=== PATIENT | female | born 1965 | race Two or more races ===

== ENCOUNTER 2020-09-08 08:45 | Outpatient (REF) | payer OTHER, SELFPAY ==
[2020-09-08 09:44] LABS: MANUAL DIFF FLAG NO
[2020-09-08 10:04] LABS: Basophils Percent Auto 0.4 % (0-2); Eosinophils Absolute Auto 0.4 X10*3/uL (0.0-0.4); Eosinophils Percent Auto 4.5 % (0-4); Hematocrit 41.4 % (37-47); Hemoglobin 13.3 g/dl (12.0-16.0); Imm Gran Abs Auto 0.01 X10*3/uL (0.00-0.03); Imm Gran Pct Auto 0.1 % (0.0-0.4); Lymphocytes Absolute Auto 2.7 X10*3/uL (1.2-4.9); Lymphocytes Percent Auto 35.2 % (20-40); Mean Corpuscular HGB Conc 32.1 g/dl (31.0-35.0); Mean Corpuscular Hemoglobin 29.5 pg (27.0-33.0); Mean Corpuscular Volume 91.8 fL (80-98); Mean Platelet Volume 9.9 fL (9.4-12.3); Monocytes Absolute Auto 0.5 X10*3/uL (0.1-1.2); Neutrophils Absolute Auto 4.1 X10*3/uL (2.0-8.3); Neutrophils Percent Auto 52.8 % (45-73); Platelet Count 374 X10*3/uL (160-400); Red Blood Count 4.51 X10*6/uL (4.20-5.50); Red Cell Distribution Width 12.6 % (11.0-16.0); White Blood Count 7.7 X10*3/uL (4.8-10.8)
[2020-09-08 11:13] LABS: Alanine Aminotransferase 17 U/L (0-31); Albumin Level 4.4 g/dL (3.5-5.0); Alkaline Phosphatase 130 U/L (39-117); Anion Gap 10 (12-20); Aspartate Amino Transferase 17 U/L (5-31); Bilirubin Total 0.7 mg/dL (0.0-1.0); Blood Urea Nitrogen 15 mg/dL (9-16); Calcium 9.1 mg/dL (8.4-10.2); Carbon Dioxide 30 mmol/L (22-29); Chloride 107 mmol/L (96-108); Estimated Glomerular Filt Rate > 60; Glucose Fasting 89 mg/dL (60-99); Potassium 4.6 mmol/L (3.3-5.1); Sodium 142 mmol/L (135-145); Total Protein 7.1 g/dL (6.5-8.0)
== END 2020-09-08 08:46 | disposition home or self-care (01) ==
LOC: HO.LAB 08:45
PROVIDERS: PCP Internal Medicine; Visit Provider Internal Medicine
DX: G47.00 Insomnia, unspecified (principal)
CPT/HCPCS: 36415; 80053; 85025

== ENCOUNTER 2020-12-08 08:13 | Outpatient (REF) | payer OTHER, SELFPAY ==
[2020-12-08 09:49] LABS: Alanine Aminotransferase 32 U/L (0-31); Albumin Level 4.2 g/dL (3.5-5.0); Alkaline Phosphatase 134 U/L (39-117); Anion Gap 11 (12-20); Aspartate Amino Transferase 22 U/L (5-31); Bilirubin Total 0.3 mg/dL (0.0-1.0); Blood Urea Nitrogen 15 mg/dL (9-16); Calcium 9.1 mg/dL (8.4-10.2); Carbon Dioxide 28 mmol/L (22-29); Chloride 108 mmol/L (96-108); Cholesterol 212 mg/dL; Estimated Glomerular Filt Rate > 60; Glucose Fasting 86 mg/dL (60-99); HDL Cholesterol 46 mg/dL; LDL Cholesterol Calculated 137 mg/dl; Potassium 4.5 mmol/L (3.3-5.1); Sodium 142 mmol/L (135-145); Total Protein 6.7 g/dL (6.5-8.0); Triglycerides 146 mg/dL
== END 2020-12-08 08:14 | disposition home or self-care (01) ==
LOC: HO.LAB 08:13
PROVIDERS: PCP Internal Medicine; Visit Provider Internal Medicine
DX: E78.5 Hyperlipidemia, unspecified (principal)
CPT/HCPCS: 36415; 80053; 80061

== ENCOUNTER 2021-06-10 07:37 | Outpatient (REF) | payer OTHER, SELFPAY ==
[2021-06-10 08:27] LABS: Alanine Aminotransferase 16 U/L (0-31); Alkaline Phosphatase 118 U/L (39-117); Anion Gap 11 (12-20); Aspartate Amino Transferase 18 U/L (5-31); Bilirubin Total 0.6 mg/dL (0.0-1.0); Blood Urea Nitrogen 14 mg/dL (9-16); Calcium 9.2 mg/dL (8.4-10.2); Carbon Dioxide 26 mmol/L (22-29); Chloride 108 mmol/L (96-108); Cholesterol 190 mg/dL; Estimated Glomerular Filt Rate > 60; Glucose Fasting 95 mg/dL (60-99); HDL Cholesterol 40 mg/dL; LDL Cholesterol Calculated 130 mg/dl; Potassium 4.2 mmol/L (3.3-5.1); Sodium 141 mmol/L (135-145); Total Protein 6.6 g/dL (6.5-8.0); Triglycerides 100 mg/dL
== END 2021-06-10 07:38 | disposition home or self-care (01) ==
LOC: HO.LAB 07:37
PROVIDERS: PCP Internal Medicine; Visit Provider Internal Medicine
DX: E78.5 Hyperlipidemia, unspecified (principal)
CPT/HCPCS: 36415; 80053; 80061

== ENCOUNTER → 2021-11-24 08:12 | Outpatient (BNVA) | payer OTHER, SELFPAY | PROVIDERS: PCP Internal Medicine; Visit Provider Physician Assistant | DX: S66.812A Strain of other specified muscles, fascia and tendons at wrist and hand level, left hand, initial encounter (principal); S64.491A Injury of digital nerve of left index finger, initial encounter | CPT/HCPCS: 99202 ==

== ENCOUNTER 2021-11-27 06:02 | Day surgery (SDC) | payer OTHER, SELFPAY ==
[2021-11-27 06:18] VITALS: BMI 26.0
[2021-11-27 06:37] VITALS: BP 138/62; PULSE 64; RESP 16; TEMP 36; O2SAT 97
[2021-11-27] MEDS: Lactated Ringers 1,000 ML 50 ML IVCONT (07:01)
--- NOTE | 2021-11-27 07:45 | MHC.SHP ---
Pre-Procedural Eval Section A Date of Service: 11/27/21 The patient is an INPATIENT: No Changes since office visit: No Cold of Flu in the past 2 weeks, No New Medical Problems, No Changes in Medication and No Patient answered all questions The History & Physical has been completed within 30 days and I have reviewed it.: Yes Section B Chief Complaint: nerve and tendon laceration Allergies: Allergies Allergy/AdvReac Type Severity Reaction Status Date / Time No Known Allergies Allergy Verified 06/19/21 14:25 Plan I have reviewed the history and physical and performed a pertinent physical examination on my patient. No changes have occurred unless specified.
--- NOTE | 2021-11-27 07:45 | W.PM.OPN ---
Operative Note Operative Note Date of Service: 11/27/21 Narrative: Operative Note Narrative: Preop diagnosis: 1. Left index finger flexor digitorum superficialis laceration, zone 2 2. Left index finger flexor digitorum profundus laceration, zone 2 3. Left index finger radial digital nerve laceration Postop diagnosis: Same Procedure: 1. Left index finger flexor digitorum superficialis repair, zone 2 2. Left index finger flexor digitorum profundus repair, zone 2 3. Left index finger radial digital nerve neurolysis and microscopic repair Surgeon: Janet Reilly MD Anesthesia: general anesthesia plus regional block Findings: laceration of FDS and FDP tendons of the left index finger just proximal to the A4 arron. The distal aspect of the FDP tendon was found in the proximal aspect of the A4 arron. The proximal aspect of these tendons were found just proximal to the A2 arron. The radial digital nerve and artery were both lacerated at the PIP flexion crease. Implants: None Tourniquet time: One hundred minutes EBL: 5.0 ml Specimen: none Drains: None Complications: None Disposition: Brought to the recovery room in stable condition Plan: Follow-up with our OT hand therapists for a custom dorsal blocking splint and to begin the flexor tendon protocol within 1 week. Follow-up in 10-14 days for wound check and suture removal Indications: The patient is 56 years old with a left index finger FDS and FDP tendon repair as well as numbness in the radial digital nerve distribution all in zone 2 . The risks and benefits of operative treatment, including but not limited to risk of damage to blood vessels, nerves, tendons, infection, recurrence, persistent pain or numbness, incomplete resolution of preoperative symptoms, or need for further surgery were discussed with the patient and they wished to proceed with surgery. Procedure: Once consent was obtained patient was brought back to the operating suite and placed in the operating table in a supine position. A regional block was performed by the anesthesia team. Perioperative antibiotics and anesthesia was administered by the anesthesia team. A tourniquet was applied to the proximal aspect of the left upper extremity and the limb was prepped and draped in a standard surgical fashion. The limb was elevated exsanguinated with Esmarch bandage and the tourniquet inflated to 250 mm of mercury for a total tourniquet time of Under minutes. A Madeline is a type incision was made over the volar aspect of the patient's left index finger, incorporating the laceration. The incision was made through the skin to the subcutaneous tissues using a 15. Blade. Careful dissection was made down to the level of the flexor tendon sheath with care being taken to protect the neurovascular structures. The laceration through the flexor tendon sheath was found just proximal to the A4 arron lacerating both the FDS and FDP tendons. The radial digital nerve and artery were also noted to be lacerated. The wound was washed out and debrided of any nonviable tissue. Our attention was 1st turned to the Flexor tendons. I was able to grasp the FDS and FDP tendons within the flexor tendon sheath and bring them out to the A3 arron area. There were then held in place with a 25 gauge needle. I then repaired the ulnar and radial slips of the flexor digitorum superficialis tendon. Each 1 was repaired using some 4-0 FiberWire. I then turned my attention to the FDP tendon. This was repaired using a 4 core suture technique and 3-0 Ethibond suture. It was repaired proximal to the A4 arron. An epitendinous repair was then performed using some 6 0 Prolene. I performed a neurolysis mobilizing the radial digital nerve both proximal and distal to the laceration. They were lacerated essentially at the PIP flexion crease. A small piece of blue Esmarch was placed beneath the 2 nerve ends. I removed approximately 1 mm from the proximal end of the radial digital nerve to freshen up the end in preparation for repair. We then brought in the surgical microscope. The radial digital nerve was then repaired microscopically using some 8 0 nylon suture. I was satisfied with our repair of the radial digital nerve. At this point the tourniquet was deflated and hemostasis obtained with a brief period of local pressure . The wound was copiously irrigated with normal saline. The the skin edges were reapproximated with 5-0 Prolene suture. The wound was infiltrated with 0.25% plain Marcaine for postop pain control and a sterile dressing was applied. A dorsal blocking splint was then applied holding the MCP and PIP joints in a flexed position and the wrist in neutral.. The patient appears to have tolerated the procedure well and with no complications. All digits were well vascularized conclusion of the case.
[2021-11-27 10:50] VITALS: BP 113/64; PULSE 80; RESP 16; TEMP 37.2; O2SAT 98
[2021-11-27 10:55] VITALS: BP 105/66; PULSE 79; RESP 16; O2SAT 98
[2021-11-27 11:00] VITALS: BP 127/69; PULSE 92; RESP 16; O2SAT 98
[2021-11-27 11:05] VITALS: BP 132/64; PULSE 87; RESP 16; O2SAT 98
[2021-11-27 11:20] VITALS: BP 127/71; PULSE 79; RESP 16; TEMP 36.8; O2SAT 98
== END 2021-11-27 12:40 | disposition home or self-care (01) ==
PROVIDERS: PCP Internal Medicine; Visit Provider Orthopaedic Surgery
PROC: (CPT 26356; principal; 2021-11-27 07:30)
DX: S66.812A Strain of other specified muscles, fascia and tendons at wrist and hand level, left hand, initial encounter (principal); S64.491A Injury of digital nerve of left index finger, initial encounter; R20.2 Paresthesia of skin; W26.0XXA Contact with knife, initial encounter; Y93.G1 Activity, food preparation and clean up; Y92.9 Unspecified place or not applicable; Y99.8 Other external cause status; I87.2 Venous insufficiency (chronic) (peripheral); E78.5 Hyperlipidemia, unspecified; F17.210 Nicotine dependence, cigarettes, uncomplicated
CPT/HCPCS: 26356 ×2; 64702; J0690; J2250; J2795; J3010

== ENCOUNTER 2021-12-29 10:23 | Outpatient (REF) | payer OTHER, SELFPAY ==
--- NOTE | ~2021-12-29 | MM_ITS ---
EXAMINATION: MM SCREENING DIGITAL BREAST TOMOSYNTHESIS, BILATERAL CLINICAL INFORMATION: Screening. Asymptomatic. The lifetime risk of breast cancer based on the Tyrer-Cuzick Model is 8%. COMPARISON: Mammography: 04/13/2020, 07/18/2018, 07/10/2010; bilateral breast ultrasound 10/11/2018. TECHNIQUE: Digital breast tomosynthesis is performed in both the craniocaudal and mediolateral oblique views along with computer-aided detection (CAD). Synthesized 2D images are generated from the tomosynthesis. FINDINGS: The breasts are heterogeneously dense, which may obscure small masses (ACR BI-RADS breast composition Category c). Parenchymal pattern is similar to prior study. There is no interval mass or architectural abnormality or abnormal calcifications. Right breast again has circumscribed mass central 12:00 position with benign rim calcification. There are smaller satellite nodularity with rim calcification central 3:00 and mid 9:00 position stable to decreased. The axilla and skin contours are unremarkable. No significant changes. MM/MM tomosynthesis screening BI IMPRESSION: No mammographic evidence of malignancy. ASSESSMENT: BI-RADS 2: Benign RECOMMENDATION: Routine annual mammography screening. This patient's information was entered into a reminder system with a target due date for their next mammogram.
== END 2021-12-29 10:24 | disposition home or self-care (01) ==
LOC: HO.MAMMO 10:23
PROVIDERS: PCP Internal Medicine; Visit Provider Internal Medicine
DX: Z12.31 Encounter for screening mammogram for malignant neoplasm of breast (principal)
CPT/HCPCS: 77063; 77067

== ENCOUNTER 2022-03-21 14:30 | Outpatient (RCR) | payer OTHER, SELFPAY ==
--- NOTE | 2022-04-16 15:59 | MHC.OT.DC ---
[address] [phone] F: [phone] Occupational Therapy Discharge Note Provider: Janet Reilly Diagnosis: Left index flexor tendon and digital nerve laceration Date of Surgery: 11/27/21 Date of Evaluation: 12/01/21 Date of Discharge: Treatments to Date: 21 Cancellations to Date: 1 No Shows to Date: 1 Discharge Status: Improved Function Independent with HEP Patient Elected to Stop Discharge Summary: Good inc in PIPj flexion 95 (100) deg. Con't mild PIPj flexion contracture 30 (25) deg Excellent inc in active DIPj flexion 25 (55) deg Pt is indep with her HEP and plans to pursue for maximizing digit ROM and follow up with Dr Reilly if needed after several weeks of HEP Electronically Signed By: Olya Trejo OT CHT CLT Reviewed/agree with student documentation: N/A Therapist: Please Sign and return to therapist, thank you for your referral.
== END 2022-04-16 16:00 | disposition home or self-care (01) ==
LOC: HO.OT 14:30
PROVIDERS: PCP Internal Medicine; Visit Provider Orthopaedic Surgery
DX: S64.40XA Injury of digital nerve of unspecified finger, initial encounter (principal); S66.822A Laceration of other specified muscles, fascia and tendons at wrist and hand level, left hand, initial encounter
CPT/HCPCS: 29125; 97035; 97110; 97140; 97167; 97760

== ENCOUNTER 2022-06-02 07:48 | Outpatient (REF) | payer OTHER, SELFPAY ==
[2022-06-02 08:48] LABS: Alanine Aminotransferase 15 U/L (0-31); Albumin Level 4.2 g/dL (3.5-5.0); Alkaline Phosphatase 102 U/L (39-117); Anion Gap 12 (12-20); Aspartate Amino Transferase 13 U/L (5-31); Bilirubin Total 0.4 mg/dL (0.0-1.0); Blood Urea Nitrogen 12 mg/dL (9-16); Calcium 9.4 mg/dL (8.4-10.2); Carbon Dioxide 27 mmol/L (22-29); Chloride 108 mmol/L (96-108); Cholesterol 247 mg/dL; Estimated Glomerular Filt Rate > 60; Glucose Fasting 100 mg/dL (60-99); HDL Cholesterol 51 mg/dL; LDL Cholesterol Calculated 172 mg/dl; Potassium 4.6 mmol/L (3.3-5.1); Sodium 142 mmol/L (135-145); Total Protein 6.7 g/dL (6.5-8.0); Triglycerides 121 mg/dL
== END 2022-06-02 07:49 | disposition home or self-care (01) ==
LOC: HO.LAB 07:48
PROVIDERS: PCP Internal Medicine; Visit Provider Internal Medicine
DX: Z00.00 Encounter for general adult medical examination without abnormal findings (principal); E78.5 Hyperlipidemia, unspecified
CPT/HCPCS: 36415; 80053; 80061

== ENCOUNTER 2023-02-11 10:29 | Outpatient (REF) | payer OTHER, SELFPAY ==
--- NOTE | ~2023-02-11 | MM_ITS ---
EXAMINATION: MM SCREENING DIGITAL BREAST TOMOSYNTHESIS, BILATERAL CLINICAL INFORMATION: Screening. Asymptomatic. COMPARISON: Mammography: This study is compared with prior exams dating back to 2019. TECHNIQUE: Digital breast tomosynthesis is performed in both the craniocaudal and mediolateral oblique views along with computer-aided detection (CAD). Synthesized 2D images are generated from the tomosynthesis. FINDINGS: The breasts are heterogeneously dense, which may obscure small masses (ACR BI-RADS breast composition Category c). There are no significant masses, abnormal calcifications, or other abnormalities. There are benign calcifications in the right breast. There is a partially calcified, 15 mm oil cyst in the 12:00 region of the right breast. This is a benign entity. MM/MM tomosynthesis screening BI IMPRESSION: No mammographic evidence of malignancy. ASSESSMENT: BI-RADS BI-RADS 2 - Benign Findings RECOMMENDATION: Routine annual mammography screening. 1 year F/U This examination should not preclude the clinical evaluation of a suspicious palpable abnormality. This patient's information was entered into a reminder system with a target due date for their next mammogram.
== END 2023-02-11 10:30 | disposition home or self-care (01) ==
LOC: HO.MAMMO 10:29
PROVIDERS: PCP Internal Medicine; Visit Provider Internal Medicine
DX: Z12.31 Encounter for screening mammogram for malignant neoplasm of breast (principal)
CPT/HCPCS: 77063; 77067

== ENCOUNTER → 2023-02-11 10:45 | Outpatient (BNV) | payer OTHER, SELFPAY | PROVIDERS: PCP Internal Medicine; Visit Provider Radiology Diagnostic Radiology | DX: Z12.31 Encounter for screening mammogram for malignant neoplasm of breast (principal) | CPT/HCPCS: 77063; 77067 ==

== ENCOUNTER 2023-02-18 14:16 | Outpatient (AMB) | payer OTHER, SELFPAY ==
--- NOTE | 2023-02-18 14:44 | MHC.OFFVIS ---
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 Intake Note: menopause issues having a lot of hot flashes Ambulatory Service Representative Required: Yes Ambulatory Service Representative Language: Bulgarian Information Interpreted: non-clinical & clinical Sales And Service Engineer: Sales And Service Engineer Present (Soy) Allergies atorvastatin Allergy (Mild, Verified 02/18/23 14:51) Rash Medication List - Last Reconciled 02/18/23 by Robyn Montgomery CNM rosuvastatin 5 mg PO DAILY 90 days Is last menstrual period known: No Post menopausal: Yes 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 Her only issues are around the symptoms of menopause she is having lots of hot flashes which are really keeping her up at night and she breaks out in a sweat and has to get up and take a shower and it disturbs her sleep she has the air conditioner on and a fan on and she sleeps on cotton sheets and she also keeps a towel Handy. She says Dr. Solano talked her about hormones but that there has many side effects and risks. She gave her a medicine to help her sleep but it is not doing a thing she does take melatonin which helps a little tiny bit to sleep. She is and has no concerns at all about STDs or anything and she says her is very understanding about the changes her body is going through she also suffers a lot from the vaginal dryness. She has not had a period in some time now. 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 [facility] Medical History Dyslipidemia Insomnia Physical exam Venous (peripheral) insufficiency Surgical History History of tubal ligation Laceration of left hand Family History (Updated 02/18/23 @ 14:52 by VANE Hammond) Father Diabetes Hypertension Mother Diabetes Hypertension Daughter Asthma Brother Asthma Sister Asthma Maternal Aunt Breast cancer Social History Housing: House Alcohol intake: current Alcohol intake frequency: holidays/special occasions only Alcohol type: beer Patient Tobacco Use Status: Current everyday Tobacco user Tobacco use type: Cigarette Cigarettes Per Day: 5 Years Smoked: 27 years e-Cigarette/Vaping Use: Never Used Second Hand Smoke Exposure: No service: No Current occupational status: employed 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 Current occupational exposures/hazards: No Cognitive needs: No Hearing needs: No Vision needs: Yes Female Reproductive History Menstrual Age of Menarche: 14 control method: other (tubal ligation) Total pregnancies: 2 Full term: 2 Number of Living Children: 2 Date of last pap smear: 09/25/18 (negative) Date of Mammogram: 02/11/23 Physical Exam Vital Signs: Last Vital Signs BP 144/76 H 02/18/23 14:45 BMI result Body Mass Index 27.3 Const General: healthy appearing, comfortable, no acute distress, well developed and alert Nutritional Appearance: average body habitus Orientation/consciousness: patient oriented x3 Limitations: no limitations HEENT Head: Yes normocephalic Neck Neck: Yes normal visual inspection Chest Chest palpation & inspection: normal inspection of the chest Breast/axilla inspection: normal inspection of the breasts and normal inspection of the axillae Breast/axilla palpation: normal palpation of the breasts and normal palpation of the axillae Resp Effort & Inspection: normal respiratory effort GI Inspection: Yes normal to inspection, No Abdominal wall edema and No distended Palpation (GI): Soft to palpation and nontender General: Yes bladder normal to palpation External Female Exam: normal external appearance and normal appearance of the urethra Speculum Exam - Vagina: normal appearance of the vagina, normal palpation and normal vaginal discharge Speculum Exam - Cervix: normal appearance of the cervix, normal palpation and nontender Bimanual exam- vagina & uterus: normal bimanual exam, normal palpation, uterine size normal, bladder normal to palpation, consistency normal, normal palpation, uterine mobility normal, uterine shape normal, No Cervical tenderness present, non-tender and no cervical motion tenderness Bimanual Exam- Adnexa, other: normal adnexae, no masses, normal and No adnexal tenderness Neuro General: patient oriented x3 Results Reviewed Results Reviewed: Previous normal Pap smears 2019 2008 and previous Assessment & Plan Assessment & Plan (1) Screening for cervical cancer: Code(s): Z12.4 - Encounter for screening for malignant neoplasm of cervix (2) Cigarette smoker motivated to quit: Comment: Currently 4-5 cigarettes a day she believes she can cut down and out herself. Code(s): F17.210 - Nicotine dependence, cigarettes, uncomplicated (3) Menopausal syndrome (hot flashes): Code(s): N95.1 - Menopausal and female climacteric states (4) Elevated blood pressure reading: Code(s): R03.0 - Elevated blood-pressure reading, without diagnosis of hypertension Plan -----Discussed in this visit the following: healthy balanced diet, regular and consistent exercise, getting recommended health screens, doing the best she can for her particular health concerns, kegel exercises, pap smear screening and followup recommendations, mammography screening and SBE, normal changes in cycles in her life stage--- .---Discussed normal changes that happen premenapausally, perimenapausally, and postmenopausally, and ways to handle them. Discussed the normal variation, and the range of experiences that women experience. Discussed nutrition, health, need for exercise, both weight-bearing and aerobic. Also discussed the normal changes that happen with vaginal mucosal thinning and sensitivity, and simple more natural ways of handling these challenges. Discussed symptoms at length. Also discussed the possible use of vaginal Estrace cream to least help with the vaginal dryness though I would not be comfortable with systemic administration of HRT. However because she smokes and her repeat blood pressure was more elevated I am not comfortable with even prescribing the Estrace cream today. Discussed water-based lubricants discussed all the many strategies that she is doing on her own to deal with the hot flashes at night in terms of fabric airflow and other ways of managing. Discussed the things in life that give her Berenice- being around the music and dance. She wishes to be healthier and thinks that she can quit smoking on her own. She had her mammogram last Saturday and says everything was fine though she was told her breasts were dense. Orders: Orders Pap Smear Today Z01.419 - Encounter for gynecological examination (general) (routine) without abnormal findings Coding Level of Care Code New Pt Prev Care 40-64y(31439) Diagnoses Screening for cervical cancer Z12.4 Cigarette smoker motivated to quit F17.210 Menopausal syndrome (hot flashes) N95.1 Elevated blood pressure reading R03.0
[2023-02-18 14:45] VITALS: BP 144/76; BMI 27.3
[2023-02-18 15:45] VITALS: BP 160/80
== END 2023-02-18 15:51 | disposition home or self-care (01) ==
LOC: HO.HWS 14:16
PROVIDERS: PCP Internal Medicine; Visit Provider Advanced Practice Midwife
DX: Z01.419 Encounter for gynecological examination (general) (routine) without abnormal findings (principal); F17.210 Nicotine dependence, cigarettes, uncomplicated; N95.1 Menopausal and female climacteric states; R03.0 Elevated blood-pressure reading, without diagnosis of hypertension
CPT/HCPCS: 99386

== ENCOUNTER 2023-02-18 14:16 | Outpatient (REF) | payer OTHER, SELFPAY ==
[2023-02-20 21:28] LABS: HPV mRNA E6/E7 rflx Not Detected (Not Detected)
== END 2023-02-18 14:17 | disposition home or self-care (01) ==
LOC: HO.LNP 14:16
PROVIDERS: PCP Internal Medicine; Visit Provider Advanced Practice Midwife
DX: Z01.419 Encounter for gynecological examination (general) (routine) without abnormal findings (principal); N95.1 Menopausal and female climacteric states; R03.0 Elevated blood-pressure reading, without diagnosis of hypertension; F17.210 Nicotine dependence, cigarettes, uncomplicated
CPT/HCPCS: 87624; 88142

== ENCOUNTER 2023-03-20 09:11 | Outpatient (REF) | payer OTHER, SELFPAY ==
[2023-03-20 10:30] LABS: Alanine Aminotransferase 12 U/L (0-31); Albumin Level 4.4 g/dL (3.5-5.0); Alkaline Phosphatase 96 U/L (39-117); Anion Gap 12 (12-20); Aspartate Amino Transferase 16 U/L (5-31); Bilirubin Total 0.6 mg/dL (0.0-1.0); Blood Urea Nitrogen 13 mg/dL (9-16); Calcium 9.6 mg/dL (8.4-10.2); Carbon Dioxide 28 mmol/L (22-29); Chloride 106 mmol/L (96-108); Cholesterol 162 mg/dL (<200); Estimated Glomerular Filt Rate > 60; Glucose Fasting 100 mg/dL (60-99); HDL Cholesterol 52 mg/dL (>40); LDL Cholesterol Calculated 99 mg/dL (<100); Potassium 4.5 mmol/L (3.3-5.1); Sodium 141 mmol/L (135-145); Total Protein 7.6 g/dL (6.5-8.0); Triglycerides 59 mg/dL (<150)
== END 2023-03-20 09:12 | disposition home or self-care (01) ==
LOC: HO.LAB 09:11
PROVIDERS: PCP Internal Medicine; Visit Provider Internal Medicine
DX: E78.5 Hyperlipidemia, unspecified (principal)
CPT/HCPCS: 36415; 80053; 80061

== ENCOUNTER 2023-12-14 10:04 | Outpatient (REF) | payer OTHER, SELFPAY ==
[2023-12-14 11:34] LABS: Alanine Aminotransferase 16 U/L (0-31); Albumin Level 4.2 g/dL (3.5-5.0); Alkaline Phosphatase 109 U/L (39-117); Anion Gap 12 (12-20); Aspartate Amino Transferase 16 U/L (5-31); Bilirubin Total 0.4 mg/dL (0.0-1.0); Blood Urea Nitrogen 12 mg/dL (9-16); Calcium 9.3 mg/dL (8.4-10.2); Carbon Dioxide 28 mmol/L (22-29); Chloride 107 mmol/L (96-108); Cholesterol 263 mg/dL (<200); Estimated Glomerular Filt Rate > 60; Glucose Fasting 83 mg/dL (60-99); HDL Cholesterol 42 mg/dL (>40); LDL Cholesterol Calculated 186 mg/dL (<100); Potassium 4.5 mmol/L (3.3-5.1); Sodium 142 mmol/L (135-145); Total Protein 7.3 g/dL (6.5-8.0); Triglycerides 176 mg/dL (<150)
== END 2023-12-14 10:05 | disposition home or self-care (01) ==
LOC: HO.LAB 10:04
PROVIDERS: PCP Internal Medicine; Visit Provider Internal Medicine
DX: E78.5 Hyperlipidemia, unspecified (principal); R03.0 Elevated blood-pressure reading, without diagnosis of hypertension
CPT/HCPCS: 36415; 80053; 80061

== ENCOUNTER 2023-12-17 10:35 | Outpatient (AMB) | payer OTHER, SELFPAY ==
--- NOTE | 2023-12-17 10:42 | MHC.PC.OV ---
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 Required: No Accompanied by: Self / Same As Patient Allergies atorvastatin Allergy (Mild, Verified 12/17/23 10:57) Rash Medication List - Last Reconciled 12/17/23 by Clementine Kaiser MD rosuvastatin 5 mg PO DAILY 90 days Tobacco use date assessed: 12/17/23 Dental Screening Dental Screen Date: 12/17/23 Did you have a dental visit in the last 12 months?: Yes Did you have a dental problem in the last 6 months where you did not have access to dental care?: No Was dental information given to patient?: Patient has dentist HPI HPI Comments History of Present Illness Details This is a 58-year-old female that comes for physical exam. Last mammogram was done 2022 and was normal. Last Pap smear was 2022 and was normal with HPV negative. Last colonoscopy was 2018 showing tubular adenoma and will be refer through open access to another colonoscopy. Denies any chest pain or shortness on breath. Has pure hypercholesterolemia and admits not being compliant with diet. [facility] Medical History Physical exam Venous (peripheral) insufficiency Dyslipidemia Insomnia Surgical History Laceration of left hand History of tubal ligation Family History (Updated 12/17/23 @ 11:01 by Clementine Kaiser MD) Father Diabetes Hypertension Congestive heart failure Mother Diabetes Hypertension Daughter Asthma Brother Asthma Sister Asthma Maternal Aunt Breast cancer Social History Housing: House Alcohol intake: current Alcohol intake frequency: holidays/special occasions only Alcohol type: beer Patient Tobacco Use Status: Current everyday Tobacco user Tobacco use type: Cigarette Cigarettes Per Day: 5 Years Smoked: 27 years e-Cigarette/Vaping Use: Never Used Second Hand Smoke Exposure: No service: No Current occupational status: employed 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 1. Little interest or pleasure in doing things: not at all 2. Feeling down, depressed, or hopeless: not at all 3. Trouble falling or staying asleep, or sleeping too much: not at all 4. Feeling tired or having little energy: not at all 5. Poor appetite or overeating: not at all 6. Feeling bad about yourself - or that you are a failure or have let yourself or your family down: not at all 7. Trouble concentrating on things, such as reading the newspaper or watching television: not at all 8. Moving or speaking so slowly that other people could have noticed. Or the opposite - being so fidgety or restless that you have been moving around a lot more than usual: not at all 9. Thoughts that you would be better off or of hurting yourself in some way: not at all Total score: 0 Depression Screening Interpretation: Negative Depression Screening Done: Yes 22334 - PHQ-9 Billing: Yes Source: Developed by Drs. Jose A Nicole, Keri Saravia, Lorenzo Angel and colleagues, with an educational theresa from [employer]. Thrive Questionnaire Date Thrive assessed: 12/17/23 I am a: Patient What is your living situation today?: I have a steady place to live Within the past 12 months, did the food you bought not last and you didn't have the money to get more?: Never true Within the past 12 months, did you worry whether your food would run out before you got money to buy more?: Never true Do you have trouble paying for medicines?: No Do you have trouble getting transportation to medical appointments?: No Do you have trouble paying your heating and electricity bill?: No Do you have trouble taking care of your child, family member or friend?: No Do you have trouble with day-to-day activities such as bathing, preparing meals, shopping, managing finances, etc.?: No Are you currently unemployed and looking for a job?: No Are you interested in more education?: No Please select the resources that you would like help with: None Currently or been in a relationship where the following occur: no concerns reported THRIVE Score: 0 AUDIT C Alcohol Use Questionnaire (AUDIT-C) 1. How often do you have a drink containing alcohol?: Monthly or less 2. How many drinks containing alcohol do you have on a typical day when you are drinking?: 1 or 2 3. How often do you have six or more drinks on one occasion?: Never Total Score: 1 AUDELIA-7 AMB Questionnaire AUDELIA-7 Date AUDELIA - 7 assessed: 12/17/23 Feeling nervous, anxious, or on edge: 0 = Not at all Not being able to stop or control worryin = Not at all Worrying too much about different things: 0 = Not at all Trouble relaxin = Not at all Being so restless that it is hard to sit still: 0 = Not at all Becoming easily annoyed or irritable: 0 = Not at all Feeling afraid as if something awful might happen: 0 = Not at all Total AUDELIA-7 score (0-4 normal; 5-9 mild; 10-14 moderate; 15-21 severe): 0 Source: Developed by Drs. Jose A Nicole, Keri Saravia, Lorenzo Angel and colleagues, with an educational theresa from [employer]. AUDELIA-7 Assessment Billing AUDELIA-7 Assessment Tool: AUDELIA-7 Assessment 11544 Review of Systems Const All systems reviewed & are unremarkable except as noted in HPI and below Card Denies chest pain at rest, Denies chest pain with activity, Denies edema, Denies irregular heart rhythm, Denies claudication, Denies dyspnea, Denies dyspnea on exertion, Denies orthopnea, Denies paroxysmal nocturnal dyspnea and Denies slow heart rate Resp Denies cough, Denies dyspnea and Denies dyspnea on exertion Physical exam (Primary Care) Vital Signs: Last Vital Signs BP 136/70 12/17/23 10:44 BMI result Body Mass Index 27.5 Tobacco/Smoking Status: Tobacco use Status Tobacco use date assessed 12/17/23 12/17/23 10:48 Patient Tobacco Use Status Current everyday Tobacco 12/17/23 10:48 Tobacco use type Cigarette 12/17/23 10:48 e-Cigarette/Vaping Use Never Used 12/17/23 10:48 Are you ready to quit: No Tobacco cessation counseling provided: Yes Items discussed: [employer] Relapse Prevention: discussed the importance of a supportive environment, discussed negative mood or depression after quitting, weight gain after smoking is common and discussed dietary, exercise and/or lifestyle changes PHQ-9: PHQ-9 Score PHQ-9: Total score 0 12/17/23 10:48 Depression Screening Interpretation: Negative Thrive Assessment: Date of Thrive Assessment Date Thrive assessed 12/17/23 12/17/23 10:48 Currently or been in a relationship where the following occur: no concerns reported Const Orientation/consciousness: patient oriented x3 HENMT Head: Yes normal to inspection, Yes normocephalic and Yes atraumatic Ears: external ears normal Eyes General: appearance normal, both eyes and all related structures Eyelids: Yes eyelids normal Conjunctivae: conjunctivae normal Neck Neck: Yes normal visual inspection and Yes supple Resp Effort & Inspection: normal respiratory effort Auscultation: clear to auscultation bilaterally Cardio Jugular venous distension: no JVD Rate: regular rate Rhythm: regular rhythm Heart sounds: S1 normal heart sound present and S2 normal heart sound present GI Inspection: Yes normal to inspection Palpation (GI): Soft to palpation and nontender Auscultation: normal bowel sounds Skin General skin exam: no rashes or lesions noted Neuro General: patient oriented x3 and no focal motor deficits Extrem General: Yes full ROM Psych Appearance: grossly normal Assessment and Plan Assessment & Plan (1) Physical exam: Code(s): Z00.00 - Encounter for general adult medical examination without abnormal findings Plan: Repeat in a year. Orders: Referrals Open Access Screening Colonoscopy Referral Z12.11 - Encounter for screening for malignant neoplasm of colon Medications: Refilled rosuvastatin 5 mg PO DAILY 90 days 90 tabs 1RF E78.5 - Hyperlipidemia, unspecified Coding Level of Care Code Est Pt Prev Care 40-64y(83547) Diagnoses Physical exam Z00.00 Additional Codes AUDELIA-7 Assessment Billing - AUDELIA-7 Assessment Tool: AUDELIA-7 Assessment 51401 ([id number]) Time Spent (min) 30
[2023-12-17 10:44] VITALS: BP 136/70; BMI 27.5
== END 2023-12-17 11:09 | disposition home or self-care (01) ==
PROVIDERS: PCP Internal Medicine; Visit Provider Internal Medicine
DX: Z00.00 Encounter for general adult medical examination without abnormal findings (principal)
CPT/HCPCS: 99396

== ENCOUNTER 2024-03-17 09:54 | Outpatient (AMB) | payer OTHER, SELFPAY ==
[2024-03-17 10:01] VITALS: BP 126/70; BMI 27.5
--- NOTE | 2024-03-17 10:01 | A.OFFVIS_ITS ---
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 She did want to revisit the question of hormone use she is still smoking about 4 or 5 cigarettes a day. She says she spoke about it with her primary in her primary had the same opinion that it would be something that would pass and cautioned against hormone use. Her blood pressure is better today she is not as sexually active as she used to be her she does not find the interest she does use on lubricant that she got online that does help when she does she did change her detergents recently to gain and it caused vaginal itching so she would like a cream for that. The itching use externally in labial creases. She lost weight and she has been eating well and she has been exercising at home and doing her weights. [facility] Medical History Physical exam Venous (peripheral) insufficiency Dyslipidemia Insomnia Surgical History Laceration of left hand History of tubal ligation Family History Father Diabetes Hypertension Congestive heart failure Mother Diabetes Hypertension Daughter Asthma Brother Asthma Sister Asthma Maternal Aunt Breast cancer Social History Housing: House Alcohol intake: current Alcohol intake frequency: holidays/special occasions only Alcohol type: beer Patient Tobacco Use Status: Current everyday Tobacco user Tobacco use type: Cigarette Cigarettes Per Day: 5 Years Smoked: 27 years e-Cigarette/Vaping Use: Never Used Second Hand Smoke Exposure: No service: No Current occupational status: employed 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 Current occupational exposures/hazards: No Cognitive needs: No Hearing needs: No Vision needs: Yes Female Reproductive History Menstrual Age of Menarche: 14 Duration of menses: 3-5 days control method: permanent sterilization Total pregnancies: 2 Full term: 2 Date of last pap smear: 02/19/23 (neg.previous pap 2019 WNL) Date of Mammogram: 02/19/23 (2Benign finding) Physical Exam Vital Signs: Last Vital Signs BP 126/70 03/17/24 10:01 BMI result Body Mass Index 27.5 Const General: healthy appearing, comfortable, no acute distress, well developed and alert Nutritional Appearance: average body habitus Orientation/consciousness: patient oriented x3 Limitations: no limitations HEENT Head: Yes normocephalic Neck Neck: Yes normal visual inspection Chest Chest palpation & inspection: normal inspection of the chest Breast/axilla inspection: normal inspection of the breasts and normal inspection of the axillae Breast/axilla palpation: normal palpation of the breasts and normal palpation of the axillae Resp Effort & Inspection: normal respiratory effort GI Inspection: Yes normal to inspection, No Abdominal wall edema and No distended Palpation (GI): Soft to palpation and nontender Other: Atrophic changes there is a little redness in the labial creases consistent with mild irritation. Vagina somewhat moist no inflammation multiparous cervix pink smooth abnormal discharge cultures done just for completion secondary to vaginal itching. Will treat with Monistat 7 cream to use p.r.n. General: Yes bladder normal to palpation External Female Exam: normal external appearance and normal appearance of the urethra Speculum Exam - Vagina: normal appearance of the vagina, normal palpation and normal vaginal discharge Speculum Exam - Cervix: normal appearance of the cervix, normal palpation and nontender Bimanual exam- vagina & uterus: normal bimanual exam, normal palpation, uterine size normal, bladder normal to palpation, consistency normal, normal palpation, uterine mobility normal, uterine shape normal, No Cervical tenderness present, non-tender and no cervical motion tenderness Bimanual Exam- Adnexa, other: normal adnexae, no masses, normal and No adnexal tenderness Neuro General: patient oriented x3 Results Reviewed Results Reviewed: Name: Kristine Wadsworth C Age/Sex: 57/F Attending: Robyn Montgomery CNM : 1965 Submitted by: Robyn Montgomery CNM Copies to: Clementine Lindsay MD MR #: [id number] Status: DEP REF Collected: 02/18/23 Location: [facility] Received: 02/19/23 Interpretation Satisfactory for evaluation. No endocervical cells seen. Negative for intraepithelial lesion or malignancy. Coccobacilli consistent with shift in vaginal sally. HPV mRNA E6/E7: NOT DETECTED This assay detects E6/E7 viral messenger RNA (mRNA) from 14 high-risk HPV types (16, 18, 31, 33, 35, 39, 45, 51, 52, 56, 58, 59, 66, 68) HPV testing performed by [facility], [place], [place]. See reference laboratory portion of the EMR for entire report. Clinical Information LMP: No menses Previous PAP test: 09/25/18, WNL Material Received ThinPrep-Cervical Copies To Robyn Montgomery [address] [place] [address] Clementine Lindsay MD [address] [place] [address] [address] [place] [address] Electronically Signed By: Loyda Gupta 03/02/23 1415 The Pap Test is a screening procedure with the inherent possibility of both fals e negative and false positive results. Results should be interpreted in the context of historic and current clinical findings. Reliability of the Pap Test is enhanced by performing the test on a regular repetitive basis. Patient: Kristine Wadsworth Age/Sex: 57/F Acct# Assessment & Plan Assessment & Plan (1) Menopausal syndrome (hot flashes): Code(s): N95.1 - Menopausal and female climacteric states Category: Medical (2) Cigarette smoker motivated to quit: Comment: Currently 4-5 cigarettes a day she believes she can cut down and out herself.. ( 03/17/24-not as motivated to quit today). Code(s): F17.210 - Nicotine dependence, cigarettes, uncomplicated Category: Social Hx (3) Screening for cervical cancer: Comment: 02/18/23 Pap is negative w neg hpv. Code(s): Z12.4 - Encounter for screening for malignant neoplasm of cervix Category: Medical (4) Well woman exam with routine gynecological exam: Code(s): Z01.419 - Encounter for gynecological examination (general) (routine) without abnormal findings Category: Medical Plan -----Discussed in this visit the following: healthy balanced diet, regular and consistent exercise, getting recommended health screens, doing the best she can for her particular health concerns, kegel exercises, pap smear screening and followup recommendations, mammography screening and SBE, normal changes in cycles in her life stage--- . She will be scheduling her mammogram. Congratulated on her weight loss and strong muscles and working out and self-care. Discussed the menopausal symptoms and use of hormones again. I am personally not comfortable with HRT. If she were not a smoker and given that her blood pressure is excellent this year I would feel comfortable giving her the Estrace cream for vaginal symptoms, and we did discuss this if she thought she could stop smoking but she did not affirm that that was something she was interested in doing. She will be scheduling her mammogram. For the vaginal itching I am prescribing Monistat 7 cream that she can use as she wishes p.r.n. probably just externally as there is no internal irritation she thinks it was because she is irritated from the detergent she has switched back to her original. Medications: New miconazole nitrate 2% (Miconazole-7) may use prn for vag itching 1 appful vaginal BEDTIME 7 days 45 grams 2RF Coding Level of Care Code Est Pt Prev Care 40-64y(37075) Diagnoses Menopausal syndrome (hot flashes) N95.1 Cigarette smoker motivated to quit F17.210 Screening for cervical cancer Z12.4 Well woman exam with routine gynecological exam Z01.419
== END 2024-03-17 11:12 | disposition home or self-care (01) ==
PROVIDERS: PCP Internal Medicine; Visit Provider Advanced Practice Midwife
DX: Z01.419 Encounter for gynecological examination (general) (routine) without abnormal findings (principal); N95.1 Menopausal and female climacteric states; F17.210 Nicotine dependence, cigarettes, uncomplicated
CPT/HCPCS: 99396

== ENCOUNTER 2024-03-17 09:54 | Outpatient (REF) | payer OTHER, SELFPAY ==
[2024-03-18 12:28] LABS: CT PCR NOT DETECTED (Not Detect.); NG PCR NOT DETECTED (Not Detect.)
[2024-03-18 13:04] LABS: Bacterial Vaginosis PCR POSITIVE (Negative); Candida Group PCR NOT DETECTED (Not Detect); Candida glab krusei PCR NOT DETECTED (Not Detect); Trichomonas vaginalis PCR NOT DETECTED (Not Detect)
== END 2024-03-17 09:55 | disposition home or self-care (01) ==
LOC: HO.LAB 09:54
PROVIDERS: PCP Internal Medicine; Visit Provider Advanced Practice Midwife
DX: Z01.419 Encounter for gynecological examination (general) (routine) without abnormal findings (principal); N89.8 Other specified noninflammatory disorders of vagina; N95.1 Menopausal and female climacteric states
CPT/HCPCS: 0352U; 87491; 87591; 99396

== ENCOUNTER 2024-11-13 11:58 | Outpatient (REF) | payer OTHER, SELFPAY ==
--- OUTSIDE RECORDS SUMMARY | 2024-11-13 12:00 | XMS_ITS ---
Author Name [facility] Organization Unknown Encounters Encounter Type Encounter Reason Primary Diagnosis Location Date Emergency Laceration witho ut foreign body of left index finger without damage to nail, initial encounter [facility] 11/18/2021 Care Team Organization Name Specialty Phone Email Start Date End Da te [facility] 11/19/2021 02/10/2024 [facility] 11/18/2021 11/18/2021
== END 2024-11-13 11:59 | disposition home or self-care (01) ==
LOC: HO.MAMMO 11:58
PROVIDERS: PCP Internal Medicine; Visit Provider Internal Medicine
DX: Z12.31 Encounter for screening mammogram for malignant neoplasm of breast (principal)
CPT/HCPCS: 77063; 77067

== ENCOUNTER → 2024-11-13 12:15 | Outpatient (BNV) | payer OTHER, SELFPAY | PROVIDERS: PCP Internal Medicine; Visit Provider Internal Medicine | DX: Z12.31 Encounter for screening mammogram for malignant neoplasm of breast (principal) | CPT/HCPCS: 77063; 77067 ==

== ENCOUNTER 2024-12-22 08:35 | Outpatient (REF) | payer OTHER, SELFPAY ==
--- OUTSIDE RECORDS SUMMARY | 2024-12-22 08:44 | XMS_ITS ---
Author Name [facility] Organization Unknown Encounters Encounter Type Encounter Reason Primary Diagnosis Location Date Emergency Laceration witho ut foreign body of left index finger without damage to nail, initial encounter [facility] 11/18/2021 Care Team Organization Name Specialty Phone Email Start Date End Da te [facility] 11/19/2021 02/10/2024 [facility] 11/18/2021 11/18/2021
--- OUTSIDE RECORDS SUMMARY | 2024-12-22 08:45 | XMS_ITS | Clinical Summary ---
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 Take as directed or until you run out 40 capsule 11/18/2021 Active Immunizations Immunization Administration Dates Next Due Tdap 11/18/2021 Social History Tobacco Use Types Packs/Day Years Used Date Smoking Tobacco: Never Assessed Comments No Sex and Gender Information Value Date Recorded Sex Assigned at Not on file Legal Sex Female 7:52 PM EDT Gender Identity Not on file Sexual Orientation Not on file Last Filed Vital Signs Vital Sign Reading Time Taken Comments Blood Pressure 116/56 11/18/2021 8:39 PM EDT Pulse 67 11/18/2021 8:39 PM EDT Temperature 36.7 C (98 F) 11/18/2021 8:39 PM EDT Respiratory Rate 16 11/18/2021 8:39 PM EDT Oxygen Saturation 98% 11/18/2021 8:39 PM EDT Inhaled Oxygen Concentration - - Weight - - Height - - Body Mass Index - - Plan of Treatment Health Maintenance Due Date Last Done Comments Hepatitis C Virus Screening 1965 HIV Screening 09/15/1979 Hepatitis B Vaccines (1 of 3 - 19+ 3-dose series) 08/23 Pap Smear (Ages 21-65) 09/15/1987 Mammogram 2006 Colonoscopy 09/15/2011 Pneumococcal Vaccines 50+ (1 of 1 - PCV) 2016 Zoster (Shingles) Vaccine (1 of 2) 2016 COVID-19 Vaccine ( season) 2024 Influenza Vaccine 01/22/2025 DTaP/Tdap/Td Vaccines (2 - Td or Tdap) 11/19/2031 Insurance [facility]
[2024-12-22 08:49] LABS: MANUAL DIFF FLAG NO
[2024-12-22 08:58] LABS: Hematocrit 41.0 % (37.0-47.0); Hemoglobin 13.3 g/dl (12.0-16.0); Imm Gran Abs Auto 0.01 X10*3/uL (0.00-0.03); Imm Gran Pct Auto 0.1 % (0.0-0.4); Lymphocytes Absolute Auto 2.6 X10*3/uL (1.2-4.9); Mean Corpuscular HGB Conc 32.4 g/dl (31.0-35.0); Mean Corpuscular Hemoglobin 29.5 pg (27.0-33.0); Mean Corpuscular Volume 90.9 fL (80.0-98.0); NRBC Abs Auto 0.000 X10*3/uL (0.0-0.012); NRBC Pct Auto 0.0 /100WBC (0.0-0.2); Platelet Count 307 X10*3/uL (160-400); Red Blood Count 4.51 X10*6/uL (4.20-5.50); White Blood Count 6.9 X10*3/uL (4.8-10.8)
[2024-12-22 09:39] LABS: Alanine Aminotransferase 17 U/L (0-31); Albumin Level 4.3 g/dL (3.5-5.0); Alkaline Phosphatase 115 U/L (39-117); Anion Gap 12 (12-20); Aspartate Amino Transferase 19 U/L (5-31); Blood Urea Nitrogen 15 mg/dL (9-16); Calcium 9.1 mg/dL (8.4-10.2); Carbon Dioxide 27 mmol/L (22-29); Chloride 107 mmol/L (96-108); Cholesterol 260 mg/dL (<200); Estimated Glomerular Filt Rate > 60; HDL Cholesterol 46 mg/dL (>40); Potassium 4.2 mmol/L (3.3-5.1); Sodium 142 mmol/L (135-145); Total Protein 7.0 g/dL (6.5-8.0); Triglycerides 142 mg/dL (<150)
== END 2024-12-22 08:36 | disposition home or self-care (01) ==
LOC: HO.LAB 08:35
PROVIDERS: PCP Internal Medicine; Visit Provider Internal Medicine
DX: Z00.00 Encounter for general adult medical examination without abnormal findings (principal); G47.00 Insomnia, unspecified; E78.5 Hyperlipidemia, unspecified
CPT/HCPCS: 36415; 80053; 80061; 85025

== ENCOUNTER 2024-12-23 13:01 | Outpatient (AMB) | payer OTHER, SELFPAY ==
--- NOTE | 2024-12-23 13:04 | MHC.PC.OV ---
Vital Signs 12/23/24 13:05 Height 5 ft 3 in Weight 151 lb BMI 26.7 BP 132/70 Blood Pressure Location Lt brachial Position Sitting Intake Visit Reasons: PE Intake Note: Patient here for a physical exam Charge Auditor Required: No Accompanied by: Self / Same As Patient Allergies atorvastatin Allergy (Mild, Verified 12/23/24 13:12) Rash Medication List - Last Reconciled 12/23/24 by Clementine Kaiser MD metronidazole 0.75%(37.5mg/5gram) 1 appful vaginal BEDTIME 5 days miconazole nitrate 2% (Miconazole-7) 1 appful vaginal BEDTIME 7 days rosuvastatin 5 mg PO DAILY 90 days Tobacco use date assessed: 12/23/24 Dental Screening Dental Screen Date: 12/23/24 Did you have a dental visit in the last 12 months?: Yes Did you have a dental problem in the last 6 months where you did not have access to dental care?: No Was dental information given to patient?: Patient has dentist HPI HPI Comments History of Present Illness Details The patient is a 59-year-old female presenting for a physical examination and preventative care. The patient has a history of tubular adenoma identified during a colonoscopy in 2018. She was referred for a follow-up colonoscopy last year but was unable to attend. The patient has hypercholesterolemia and is currently compliant with rosuvastatin 5 mg daily. Despite dietary habits that include daily egg consumption, she maintains adherence to her medication regimen. The patient is a smoker and has expressed readiness to quit smoking. She has been counseled on smoking cessation strategies. The patient has onychomycosis affecting her fingernails. She will be prescribed terbinafine for 16 days and has been advised to seek dermatological consultation. Preventative care measures include a normal mammogram in 2024 and a normal Pap smear in 2022 with negative HPV results. - Colonoscopy referral for tubular adenoma follow-up - Smoking cessation counseling - Normal mammogram in 2024 - Normal Pap smear in 2022 with HPV negative -Tdap vaccine placement today. [facility] Medical History Physical exam Venous (peripheral) insufficiency Dyslipidemia Insomnia Surgical History Laceration of left hand History of tubal ligation Family History Father Diabetes Hypertension Congestive heart failure Mother Diabetes Hypertension Daughter Asthma Brother Asthma Sister Asthma Maternal Aunt Breast cancer Social History Housing: House Alcohol intake: current Alcohol intake frequency: holidays/special occasions only Alcohol type: beer Patient Tobacco Use Status: Current everyday Tobacco user Tobacco use type: Cigarette Cigarettes Per Day: 5 Years Smoked: 27 years e-Cigarette/Vaping Use: Never Used Second Hand Smoke Exposure: No service: No Current occupational status: employed 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 1. Little interest or pleasure in doing things: not at all 2. Feeling down, depressed, or hopeless: not at all 3. Trouble falling or staying asleep, or sleeping too much: several days 4. Feeling tired or having little energy: several days 5. Poor appetite or overeating: several days 6. Feeling bad about yourself - or that you are a failure or have let yourself or your family down: not at all 7. Trouble concentrating on things, such as reading the newspaper or watching television: not at all 8. Moving or speaking so slowly that other people could have noticed. Or the opposite - being so fidgety or restless that you have been moving around a lot more than usual: not at all 9. Thoughts that you would be better off or of hurting yourself in some way: not at all Total score: 3 Depression Screening Interpretation: Positive Depression Screening Follow-up: Existing condition and Follow-up Visit Requested Depression Screening Done: Yes 31999 - PHQ-9 Billing: Yes Source: Developed by Drs. Jose A Nicole, Keri Saravia, Lorenzo Angel and colleagues, with an educational theresa from [employer]. Thrive Questionnaire Date Thrive assessed: 12/23/24 I am a: Patient What is your living situation today?: I have a steady place to live Within the past 12 months, did the food you bought not last and you didn't have the money to get more?: Sometimes True Within the past 12 months, did you worry whether your food would run out before you got money to buy more?: Sometimes True Do you have trouble paying for medicines?: I choose not to answer this question Do you have trouble getting transportation to medical appointments?: No Do you have trouble paying your heating and electricity bill?: No Do you have trouble taking care of your child, family member or friend?: No Do you have trouble with day-to-day activities such as bathing, preparing meals, shopping, managing finances, etc.?: No Are you currently unemployed and looking for a job?: No Are you interested in more education?: No Please select the resources that you would like help with: None Currently or been in a relationship where the following occur: No concerns reported THRIVE Score: 2 AUDIT C Alcohol Use Questionnaire (AUDIT-C) 1. How often do you have a drink containing alcohol?: Monthly or less 2. How many drinks containing alcohol do you have on a typical day when you are drinking?: 1 or 2 3. How often do you have six or more drinks on one occasion?: Less than monthly Total Score: 2 AUDELIA-7 AMB Questionnaire AUDELIA-7 Date AUDELIA - 7 assessed: 12/23/24 Feeling nervous, anxious, or on edge: 0 = Not at all Not being able to stop or control worryin = Not at all Worrying too much about different things: 0 = Not at all Trouble relaxin = Several days Being so restless that it is hard to sit still: 0 = Not at all Becoming easily annoyed or irritable: 0 = Not at all Feeling afraid as if something awful might happen: 0 = Not at all Total AUDELIA-7 score (0-4 normal; 5-9 mild; 10-14 moderate; 15-21 severe): 1 Source: Developed by Drs. Jose A Nicole, Keri Saravia, Lorenzo Angel and colleagues, with an educational theresa from [employer]. AUDELIA-7 Assessment Billing AUDELIA-7 Assessment Tool: AUDELIA-7 Assessment 04210 Review of Systems Const All systems reviewed & are unremarkable except as noted in HPI and below Card Denies chest pain at rest, Denies chest pain with activity, Denies edema, Denies irregular heart rhythm, Denies claudication, Denies dyspnea, Denies dyspnea on exertion, Denies orthopnea, Denies paroxysmal nocturnal dyspnea and Denies slow heart rate Resp Denies cough, Denies dyspnea and Denies dyspnea on exertion GI Denies abdominal pain, Denies change in bowel habits, Denies excessive flatus, Denies nausea and Denies vomiting Physical exam (Primary Care) Vital Signs: Last Vital Signs BP 132/70 12/23/24 13:05 BMI result Body Mass Index 26.7 Tobacco/Smoking Status: Tobacco use Status Tobacco use date assessed 12/23/24 12/23/24 13:10 Patient Tobacco Use Status Current everyday Tobacco 12/23/24 13:10 Tobacco use type Cigarette 12/23/24 13:10 e-Cigarette/Vaping Use Never Used 12/23/24 13:10 PHQ-9: PHQ-9 Score PHQ-9: Total score 3 12/23/24 13:16 Depression Screening Interpretation: Positive Depression Screening Follow-up: Existing condition and Follow-up Visit Requested Thrive Assessment: Date of Thrive Assessment Date Thrive assessed 12/23/24 12/23/24 13:10 Currently or been in a relationship where the following occur: No concerns reported HENMT Head: Yes normal to inspection, Yes normocephalic and Yes atraumatic Ears: external ears normal Eyes General: appearance normal, both eyes and all related structures Eyelids: Yes eyelids normal Conjunctivae: conjunctivae normal Neck Neck: Yes normal visual inspection and Yes supple Resp Effort & Inspection: normal respiratory effort Auscultation: clear to auscultation bilaterally Cardio Jugular venous distension: no JVD Rate: regular rate Rhythm: regular rhythm Heart sounds: S1 normal heart sound present and S2 normal heart sound present GI Inspection: Yes normal to inspection Palpation (GI): Soft to palpation and nontender Auscultation: normal bowel sounds Skin General skin exam: no rashes or lesions noted Neuro General: no focal motor deficits Extrem General: Yes full ROM Psych Appearance: grossly normal Immunizations Boostrix Tdap 2.5 Lf unit-8 mcg-5 Lf/0.5 mL intramuscular syringe Performing Provider: Clementine Kaiser MD Performing Location: [facility] [place] [facility] Administered by: VANE Mendoza on 12/23/24 13:42 Dose Route Admin Location Dispensed Lot Number Expiration Date N[employer] 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 mL IM Left Deltoid 0.5 mL [id number] 02/19/27 [id number] [employer] Total Dispensed Waste 0.5 mL 0 % VIS Given Date VIS Provided VIS Publication Date 12/23/24 Single Vaccine 24 Eligibility Eligibility Date Funding Source Not [facility] Eligible 12/23/24 Private Coding Level of Care Code Est Pt Level 3 (76224) Est Pt Prev Care 40-64y(86990) Diagnoses Physical exam Z00.00 Cigarette smoker motivated to quit F17.210 Onychomycosis B35.1 Additional Codes PHQ-9 - 27225 - PHQ-9 Billing: Yes ([id number]) AUDELIA-7 Assessment Billing - AUDELIA-7 Assessment Tool: AUDELIA-7 Assessment 94472 ([id number]) Time Spent (min) 33 Assessment & Plan Assessment & Plan (1) Physical exam: Code(s): Z00.00 - Encounter for general adult medical examination without abnormal findings Category: Medical (2) Cigarette smoker motivated to quit: Comment: Currently 4-5 cigarettes a day she believes she can cut down and out herself.. ( 03/17/24-not as motivated to quit today). Code(s): F17.210 - Nicotine dependence, cigarettes, uncomplicated Category: Social Hx (3) Onychomycosis: Code(s): B35.1 - Tinea unguium Category: Medical Plan The patient will be referred for a follow-up colonoscopy due to the history of tubular adenoma identified in 2019. She is advised to continue her current rosuvastatin regimen for hypercholesterolemia and to consider dietary modifications to further manage cholesterol levels. Smoking cessation is strongly encouraged, and the patient has been counseled on strategies to quit smoking. For onychomycosis, terbinafine will be prescribed for 16 days, and a dermatology referral is recommended for further evaluation. Patient was informed and verbally consented to the use of an ambient scribe for clinic note documentation during this visit. I discussed the importance of a follow-up colonoscopy due to the previous finding of tubular adenoma. We reviewed her cholesterol management plan, emphasizing the continuation of rosuvastatin and potential dietary changes. I provided smoking cessation counseling, highlighting the health benefits of quitting smoking. We also discussed the treatment plan for onychomycosis, including the prescription of terbinafine and the recommendation for dermatological consultation. Orders: Orders Lipid Panel 6 Months E78.5 - Hyperlipidemia, unspecified TDaP Immunization Today Z23 - Encounter for immunization Comprehensive [place]. Panel Fast 6 Months E78.5 - Hyperlipidemia, unspecified Referrals Open Access Screening Colonoscopy Referral Z12.12 - Encounter for screening for malignant neoplasm of rectum Lung Cancer Screening Referral F17.210 - Nicotine dependence, cigarettes, uncomplicated Medications: New rosuvastatin 20 mg PO BEDTIME 90 tabs 1RF 90 days terbinafine HCl 250 mg PO DAILY 60 tabs 0RF 60 days B35.1 - Tinea unguium Discontinued rosuvastatin Discontinued Reason: Order 5 mg PO DAILY 90 days 90 tabs 1RF E78.5 - Hyperlipidemia, unspecified Patient Instructions: - Schedule a follow-up colonoscopy as soon as possible. - Continue taking rosuvastatin 5 mg daily. - Consider reducing egg consumption to help manage cholesterol levels. - Follow the smoking cessation plan discussed. - Take terbinafine as prescribed for 16 days. - Consider seeing a shuttle hand for further evaluation of onychomycosis.
[2024-12-23 13:05] VITALS: BP 132/70; BMI 26.7
--- OUTSIDE RECORDS SUMMARY | 2024-12-23 13:36 | XMS_ITS | Clinical Summary ---
Author Organization [facility] Address [address] [place] [id number] Care Team Providers Care Internet Assessor Name Role Phone Unavailable Primary Care Provider [...] (2 - Td or Tdap) 11/19/2031 Insurance [facility]
== END 2024-12-23 13:36 | disposition home or self-care (01) ==
LOC: HO.HMCH 13:02
PROVIDERS: PCP Internal Medicine; Visit Provider Internal Medicine
DX: Z00.00 Encounter for general adult medical examination without abnormal findings (principal); F17.210 Nicotine dependence, cigarettes, uncomplicated; B35.1 Tinea unguium; Z23 Encounter for immunization

== ENCOUNTER → 2024-12-23 13:01 | Outpatient (BNVA) | payer OTHER, SELFPAY | PROVIDERS: PCP Internal Medicine; Visit Provider Internal Medicine | DX: Z00.00 Encounter for general adult medical examination without abnormal findings (principal); E78.00 Pure hypercholesterolemia, unspecified; B35.1 Tinea unguium; E78.5 Hyperlipidemia, unspecified; F17.210 Nicotine dependence, cigarettes, uncomplicated; Z23 Encounter for immunization | CPT/HCPCS: 90471; 90715; 96127; 99212; 99396 ==

== ENCOUNTER 2025-03-23 09:25 | Outpatient (AMB) | payer OTHER, SELFPAY ==
--- NOTE | 2025-03-23 09:25 | A.OFFVIS_ITS ---
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 She is up-to-date on her mammograms and her other health issues and sees her primary care provider.. She sometimes notes a little vaginal itching on the outside but does not complain of any discharge or other problem. [facility] Medical History Physical exam Venous (peripheral) insufficiency Dyslipidemia Insomnia Surgical History Laceration of left hand History of tubal ligation Family History Father Diabetes Hypertension Congestive heart failure Mother Diabetes Hypertension Daughter Asthma Brother Asthma Sister Asthma Maternal Aunt Breast cancer Social History Housing: House Alcohol intake: current Alcohol intake frequency: holidays/special occasions only Alcohol type: beer Patient Tobacco Use Status: Current everyday Tobacco user Tobacco use type: Cigarette Cigarettes Per Day: 5 Years Smoked: 27 years e-Cigarette/Vaping Use: Never Used Second Hand Smoke Exposure: No service: No Current occupational status: employed 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 Current occupational exposures/hazards: No Cognitive needs: No Hearing needs: No Vision needs: Yes Female Reproductive History Menstrual Age of Menarche: 14 control method: permanent sterilization Total pregnancies: 2 Full term: 2 Date of last pap smear: 02/18/23 (negative pap smear, negative hpv) Date of Mammogram: 11/13/24 (bi rad 2) Physical Exam Vital Signs: Last Vital Signs BP 120/72 03/23/25 09:30 BMI result Body Mass Index 26.9 Const General: healthy appearing, comfortable, no acute distress, well developed and alert Nutritional Appearance: average body habitus Orientation/consciousness: patient oriented x3 Limitations: no limitations HEENT Head: Yes normocephalic Neck Neck: Yes normal visual inspection Chest Chest palpation & inspection: normal inspection of the chest Breast/axilla inspection: normal inspection of the breasts and normal inspection of the axillae Breast/axilla palpation: normal palpation of the breasts and normal palpation of the axillae Resp Effort & Inspection: normal respiratory effort GI Inspection: Yes normal to inspection, No Abdominal wall edema and No distended Palpation (GI): Soft to palpation and nontender Other: Normal external exam vagina is pink and moist cervix pink moist normal appearing mucus long close thick mobile nontender uterus adnexa nontender nonenlarged. very good tone with Kegel General: Yes bladder normal to palpation External Female Exam: normal external appearance and normal appearance of the urethra Speculum Exam - Vagina: normal appearance of the vagina, normal palpation and normal vaginal discharge Speculum Exam - Cervix: normal appearance of the cervix, normal palpation and nontender Bimanual exam- vagina & uterus: normal bimanual exam, normal palpation, uterine size normal, bladder normal to palpation, consistency normal, normal palpation, uterine mobility normal, uterine shape normal, No Cervical tenderness present, non-tender and no cervical motion tenderness Bimanual Exam- Adnexa, other: normal adnexae, no masses, normal and No adnexal tenderness Neuro General: patient oriented x3 Results Reviewed Results Reviewed: Pap negative 2022 no history of abnormal Paps. Testing positive for BV last year patient does not have any symptoms at all this year testing deferred. Assessment & Plan Assessment & Plan (1) Screening for cervical cancer: Comment: 02/18/23 Pap is negative w neg hpv. Code(s): Z12.4 - Encounter for screening for malignant neoplasm of cervix Category: Medical (2) Menopausal syndrome (hot flashes): Comment: And decreased libido... Code(s): N95.1 - Menopausal and female climacteric states Category: Medical (3) Well woman exam with routine gynecological exam: Code(s): Z01.419 - Encounter for gynecological examination (general) (routine) without abnormal findings Category: Medical Plan -----Discussed in this visit the following: healthy balanced diet, regular and consistent exercise, getting recommended health screens, doing the best she can for her particular health concerns, kegel exercises, pap smear screening and followup recommendations, mammography screening and SBE, normal changes in c ycles in her life stage--- .This note is constructed using voice recognition software. While every effort has been made to ensure accuracy, engineering faculty errors may have been included. Discussed theoretical risks of prescribing estrogen and other hormonal products, and smoking and other health concerns noted. I did inform her that the FDA is revisiting some black box warnings on vaginal estrogen and if she hears the there has been anything in the news she may call and we can discuss this further additionally she may want to discuss it with her primary if she hears about something sooner then an opportunity to discuss it with us. Additionally it is unclear of any benefits to help with decreased libido. Coding Level of Care Code Est Pt Prev Care 40-64y(25047) Diagnoses Screening for cervical cancer Z12.4 Menopausal syndrome (hot flashes) N95.1 Well woman exam with routine gynecological exam Z01.419
[2025-03-23 09:30] VITALS: BP 120/72; BMI 26.9
--- OUTSIDE RECORDS SUMMARY | 2025-03-23 10:12 | XMS_ITS | Clinical Summary ---
Author Organization [facility] Address [address] [place] [address] Care Team Providers Care Forepart Rasper Name Role Phone Unavailable Primary Care Provider [...] Zoster (Shingles) Vaccine (1 of 2) 2016 Influenza Vaccine 01/22/2025 COVID-19 Vaccine ( season) 2025 DTaP/Tdap/Td Vaccines (2 - Td or Tdap) 11/19/2031 Insurance [facility]
== END 2025-03-23 10:38 | disposition home or self-care (01) ==
LOC: HO.HWSM 09:25
PROVIDERS: PCP Internal Medicine; Visit Provider Advanced Practice Midwife
DX: Z01.419 Encounter for gynecological examination (general) (routine) without abnormal findings (principal); N95.1 Menopausal and female climacteric states
CPT/HCPCS: 99396; 99459

== ENCOUNTER → 2025-03-23 09:25 | Outpatient (BNVA) | payer OTHER, SELFPAY | PROVIDERS: PCP Internal Medicine; Visit Provider Advanced Practice Midwife | DX: Z01.419 Encounter for gynecological examination (general) (routine) without abnormal findings (principal); N95.1 Menopausal and female climacteric states | CPT/HCPCS: 99396 ==

== ENCOUNTER 2025-05-11 10:32 | Day surgery (SDC) | payer OTHER, SELFPAY ==
--- OUTSIDE RECORDS SUMMARY | 2025-04-13 17:49 | XMS_ITS | Clinical Summary ---
Author Organization [facility] Address [address] [place] [id number] Care Team Providers Care Automation Qa Lead Name Role Phone Unavailable Primary Care Provider [...] Vaccines (2 - Td or Tdap) 11/19/2031 RSV Vaccine 50 years and old er and Patients (1 - 1-dose 75+ series) 2041 Insurance [facility]
[2025-05-07 10:44] VITALS: BMI 26.7
--- NOTE | 2025-05-07 12:47 | HO.ANESPROP2 ---
Documented by User: Yesenia Castillo NP 05/07/25 12:48 HPI - Anesthesia Eval Consult details Narrative: 59yo F for Colonoscopy PMFSH Active Problems Active Problems: All Active Problems (Updated 03/23/25 @ 10:30 by Robyn Montgomery CNM) Onychomycosis (Acute) Well woman exam with routine gynecological exam (Acute) Elevated blood pressure reading (Acute) Menopausal syndrome (hot flashes) (Acute) Cigarette smoker motivated to quit (Acute) Screening for cervical cancer (Acute) Physical exam (Acute) Flexor tendon laceration of left hand with open wound (Acute) Injury of digital nerve of finger (Acute) Rupture of flexor tendon of left hand (Acute) Venous (peripheral) insufficiency (Acute) Dyslipidemia (Acute) Insomnia (Acute) Past Medical History Medical History Physical exam Venous (peripheral) insufficiency Dyslipidemia Insomnia Family History Family History Father Diabetes Hypertension Congestive heart failure Mother Diabetes Hypertension Daughter Asthma Brother Asthma Sister Asthma Maternal Aunt Breast cancer Surgical History Surgical History Laceration of left hand History of tubal ligation Social History Social History Housing: House Alcohol intake: current Alcohol intake frequency: holidays/special occasions only Alcohol type: beer Patient Tobacco Use Status: Current everyday Tobacco user Tobacco use type: Cigarette Cigarettes Per Day: 5 Years Smoked: 27 years e-Cigarette/Vaping Use: Never Used Second Hand Smoke Exposure: No Use of substances other than those prescribed or required for medical reasons: Yes Substance Use Frequency: Occasionally Advance Directives: No Advance Directives Information Provided: Yes service: No Current occupational status: employed 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 Current occupational exposures/hazards: No Cognitive needs: No Hearing needs: No Vision needs: Yes Meds Allergies Allergy/AdvReac Type Severity Reaction Status Date / Time atorvastatin Allergy Mild Rash Verified 03/23/25 09:35 Exam Height,Weight and Vital Signs: Height 5 ft 3 in Weight 68.492 kg Assessment and Plan Assessment Anesthesia Assessment: Chart Reviewed Documented by User: Tessa Herring MD 05/11/25 11:56 PMFSH Past Medical History Medical History Physical exam Venous (peripheral) insufficiency Dyslipidemia Insomnia Family History Family History Father Diabetes Hypertension Congestive heart failure Mother Diabetes Hypertension Daughter Asthma Brother Asthma Sister Asthma Maternal Aunt Breast cancer Surgical History Surgical History Laceration of left hand History of tubal ligation History of Problems with Anesthesia: No Social History Social History Housing: House Alcohol intake: current Alcohol intake frequency: holidays/special occasions only Alcohol type: beer Patient Tobacco Use Status: Current everyday Tobacco user Tobacco use type: Cigarette Cigarettes Per Day: 5 Years Smoked: 27 years e-Cigarette/Vaping Use: Never Used Second Hand Smoke Exposure: No Use of substances other than those prescribed or required for medical reasons: Yes Substance Use Frequency: Occasionally Advance Directives: No Advance Directives Information Provided: Yes service: No Current occupational status: employed 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 Current occupational exposures/hazards: No Cognitive needs: No Hearing needs: No Vision needs: Yes Meds Allergies Allergy/AdvReac Type Severity Reaction Status Date / Time atorvastatin Allergy Mild Rash Verified 03/23/25 09:35 Exam Airway Mallampati Class: II TM Dist: >3cm Neck ROM: Full Partial: Upper Loose/Missing/Broken Teeth: Yes and Upper Heart: RRR Lungs: CTA Assessment and Plan Assessment Anesthesia Assessment: Anesthesia Plan Discussed Final Anesthetic Review History of Problems with Anesthesia: No NPO: Yes ASA Class: II Final Preanesthetic Review: Meds/Allgs Chart Reviewed, Consent Obtained/Reviewed and Anes Risks/Benef Reviewed Patient Risk: Low Anesthetic Plan Anesthetic Plan: MAC: Disposition: Standard PACU
[2025-05-11 10:40] VITALS: BMI 27.0
[2025-05-11 10:51] VITALS: BP 143/51; PULSE 75; RESP 16; TEMP 36.1; O2SAT 98
[2025-05-11] MEDS: Lactated Ringers 1,000 ML 100 ML IVCONT (10:51)
--- NOTE | 2025-05-11 11:31 | MHC.SHP ---
Pre-Procedural Eval Section A - 24 Hr Update-Section A only Date of Service: 05/11/25 Section B - Complete if H&P > 30 days Chief Complaint: Hx of tubular adenoma Details of Present Illness: Pt referred for open access colonoscopy through PCP office. Physical exam Venous (peripheral) insufficiency Dyslipidemia Insomnia Surgical History Laceration of left hand History of tubal ligation Present Medications: see Short Stay Collaborative assessment Allergies: Allergies Allergy/AdvReac Type Severity Reaction Status Date / Time atorvastatin Allergy Mild Rash Verified 03/23/25 09:35 Review of Systems Review of Systems Comment: Ten point ROS negative Exam Exam Comment: Gen appear: No acute distress HEENT: no icterus Chest: No overt resp distress Abd: soft, nontender, nondistended Psych: Stable affect, answering questions appropriately Neuro: A/Ox3 noted to move all extremities spontaneously Ext: no peripheral edema Plan Diagnosis/Plan: Unchanged I have reviewed the history and physical and performed a pertinent physical examination on my patient. No changes have occurred unless specified. Time Spent With Patient Time: Total time managing care of this patient today ____ minutes.
[2025-05-11 12:38] VITALS: BP 113/48; PULSE 56; RESP 12; TEMP 36.5; O2SAT 98
--- NOTE | 2025-05-11 12:41 | P.OPN-COLO_ITS ---
Colonoscopy Operative Note Operative Note Date of Service: 05/11/25 Narrative: Procedure: Colonoscopy Indication: Personal hx of polyps Endoscopist: Kylie Gonzales MD Anesthesia Provider: Dr Blessing Herring Anesthesia type: MAC Instrument: Olympus [id number]-[id number] Consent: Indication, risks vs benefits, and alternatives were discussed with the patient who gave written informed consent to proceed. An data processing control clerk was utilized to assist with the consent. EKG, pulse, pulse oximetry and blood pressure were monitored throughout the procedure. Please see anesthesia flowsheet. Procedure: The patient was brought to the procedure room and placed in the left lateral decubitus position. IV medications were administered by the anesthesia provider in attendance. A digital rectal exam was performed which was normal. A distal attachment cap was affixed to the tip of the colonoscope which was then inserted through the anus and advanced through the colon to the cecum at 80 cm,and terminal ileum. Appendiceal orifice and ileocecal valve were identified. Mucosa was carefully examined under high definition white light as the instrument was slowly withdrawn in a retrograde panoramic fashion. Retroflexion was performed in rectum. The procedure was not difficult. There were no immediate obvious complications. The quality of the prep was BBPS: 3+2+3 = adequate Withdrawal time 16 minutes. Limitations: No limitations. Findings: Mucosa: Normal to cecum and terminal ileum. Protruding lesions: * 1 sessile polyp of size 2 mm in transverse colon. Cold forceps polypectomy was performed. The polyp was completely removed and retrieved. * 2 sessile polyps of size 2-10 mm in transverse colon. Cold snare polypectomy was performed. The polyps were completely removed and retrieved. * 1 sessile polyp of size 4 mm in descending colon. Cold snare polypectomy was performed. The polyps were completely removed and retrieved. * 2 sessile polyps of size 2-4 mm in sigmoid colon. Cold snare polypectomy was performed. The polyps were completely removed and retrieved. * 1 sessile polyp of size 4 mm in rectum. Cold snare polypectomy was performed. The polyp was completely removed and retrieved. * Medium internal hemorrhoids without stigmata of recent bleeding. Impression: 1. Normal colon and terminal ileum mucosa 2. Total of 7 polyps removed 3. Internal hemorrhoids Recommendations: - Follow path results. - Repeat colonoscopy in 3 years.
[2025-05-11 12:50] VITALS: BP 142/62; PULSE 54; RESP 12; TEMP 36.3; O2SAT 98
[2025-05-11 13:00] VITALS: BP 143/61; PULSE 60; RESP 12; TEMP 36.3; O2SAT 98
[2025-05-11 13:15] VITALS: BP 143/61; PULSE 64; RESP 12; O2SAT 100
== END 2025-05-11 13:44 | disposition home or self-care (01) ==
PROVIDERS: PCP Internal Medicine; Visit Provider Internal Medicine
PROC: 0DJD8ZZ Inspection of Lower Intestinal Tract, Via Natural or Artificial Opening Endoscopic (ICD-10-PCS; CPT 45378; principal; 2025-05-11 12:30)
DX: Z12.11 Encounter for screening for malignant neoplasm of colon (principal); Z86.0101 Personal history of adenomatous and serrated colon polyps; K64.8 Other hemorrhoids; D12.3 Benign neoplasm of transverse colon; D12.4 Benign neoplasm of descending colon; D12.5 Benign neoplasm of sigmoid colon
CPT/HCPCS: 45380; 88305; J2704

== ENCOUNTER → 2025-05-11 10:32 | Outpatient (BNV) | payer OTHER, SELFPAY | PROVIDERS: PCP Internal Medicine; Visit Provider Internal Medicine | DX: Z12.11 Encounter for screening for malignant neoplasm of colon (principal); K63.5 Polyp of colon; K64.8 Other hemorrhoids | CPT/HCPCS: 45385 ==